=== PATIENT | male | born 1975 | race Caucasian/White ===

== ENCOUNTER 2018-01-26 15:59 | Emergency (ER) | payer BC ==
[~2018-01-26] VITALS: Ht 182.9 cm; Wt 123.4 kg
[2018-01-26 16:02] VITALS: Ht 182.9 cm; Wt 123.4 kg
[2018-01-26 19:30] VITALS: BP 150/81
== END 2018-01-26 19:30 | disposition home or self-care (01) ==
LOC: ED 15:59
DX: G51.0 Bell's palsy (principal); I10 Essential (primary) hypertension; E11.9 Type 2 diabetes mellitus without complications
CPT/HCPCS: 82962